=== PATIENT | male | born 1975 | race Caucasian/White ===

== ENCOUNTER 2020-01-12 06:20 | Day surgery (SDC) | payer BC ==
[2020-01-11 14:33] LABS: BASOPHILS # (AUTO) 0.1 X10'3 (0-0.2); BASOPHILS % (AUTO) 0.7 % (0-1); EOSINOPHILS # (AUTO) 0.2 X10'3 (0-0.9); EOSINOPHILS % (AUTO) 2.2 % (0-6); LYMPHOCYTES # (AUTO) 2.6 X10'3 (1.1-4.8); LYMPHOCYTES % (AUTO) 32.5 % (21-51); MEAN CORPUSCULAR HEMOGLOBIN 31.7 PG (27.0-31.0); MEAN CORPUSCULAR HGB CONC 34.5 g/dL (33.0-36.5); MEAN PLATELET VOLUME 7.4 FL (7.4-10.4); MONOCYTES # (AUTO) 0.8 X10'3 (0-0.9); MONOCYTES % (AUTO) 9.5 % (2-12); NEUTROPHILS # (AUTO) 4.4 X10'3 (1.8-7.7); NEUTROPHILS % (AUTO) 55.1 % (42-75); PRE OP HEMATOCRIT 42.1 % (42.0-52.0); PRE OP HEMOGLOBIN 14.5 g/dL (14.0-17.9); PRE OP PLATELET COUNT 324 X10'3 (140-440); RED BLOOD COUNT 4.57 X10'6 (4.70-6.10); RED CELL DISTRIBUTION WIDTH 13.8 % (11.5-14.5)
[2020-01-11 14:47] LABS: CLARITY,URINE CLEAR (Clear); COLOR,URINE YELLOW (Yellow); GLUCOSE, URINE NEGATIVE (Neg); KETONES,URINE NEGATIVE (Neg); LEUKOCYTE ESTERASE ,URINE NEGATIVE (Neg); NITRITES, URINE NEGATIVE (Neg); OCCULT BLOOD,URINE NEGATIVE (Neg); PH,URINE 7.5 (4.8-8.0); PROTEIN,URINE NEGATIVE (Neg); UROBILINOGEN,URINE 0.2 E.U/dL (0.2-1.0)
[2020-01-11 14:49] LABS: UA COLLECTION TYPE CLN CATCH MIDSTREAM
[2020-01-11 14:54] LABS: ALBUMIN 4.2 G/DL (3.4-5.0); ALBUMIN/GLOBULIN RATIO 1.2 (1.1-1.5); ALKALINE PHOSPHATASE 68 IU/L (46-116); BLOOD UREA NITROGEN 13 MG/DL (7-18); BUN/CREATININE RATIO 12.7 (5.4-32.0); CALCIUM 9.8 MG/DL (8.5-10.1); CHLORIDE 104 MMOL/L (99-107); CREATININE 1.02 MG/DL (0.60-1.10); PRE OP ALT 31 U/L (30-65); PRE OP ANION GAP 7 (8-16); PRE OP AST 30 U/L (10-37); PRE OP BILIRUB, TOTAL 0.4 MG/DL (0.0-1.0); PRE OP GLUCOSE 100 MG/DL (70-104); PRE OP POTASSIUM 3.6 MMOL/L (3.4-5.1); PRE OP SODIUM 141 MMOL/L (135-145); TOTAL CARBON DIOXIDE 30.5 MMOL/L (24-32); TOTAL PROTEIN 7.6 G/DL (6.4-8.2); eGFR 79 ML/MIN
[~2020-01-12] VITALS: Ht 175.3 cm; Wt 70.0 kg
[~2020-01-12 06:20] MED LIST: AMOX-117 PO; CHOL500049 PO; cefazolin/dext.iso 2gm/50ml 50 ML IV ONE; famotidine 20mg tablet PO ONE; ringers solution, lacted 1,000 ML IV SCH
[2020-01-12 06:25] VITALS: BP 124/78
[2020-01-12] MEDS ORDERED: LIDOcaine 1% 30ml preserv. free vial ONE (08:05)
[2020-01-12] MEDS ORDERED: BUPIVAcaine/PF 2.5 mg/ml (0.25%) 30ml vial ONE (08:05)
[2020-01-12] MEDS ORDERED: ondansetron/PF 4mg/2ml inj ONE (08:14)
--- NOTE | 2020-01-12 09:05 | NUR ---
PT RECEIVED FROM DR MARSHALL VIA GURNEY AFTER EXCISION OF NECK AND DID NOT RECEIVE ANY SEDATION, PT ONLY RECEIVED A LOCAL INJECTION AT INCISION SITE, PER DR MARSHALL, NUVIA TO SEND PT HOME, VSS, 130/80, HR 71, RR 16, SA02 99% ON ROOM AIR, LEFT NECK W/FOAM TAPE COVERING DRSG, CDI. PT DENIES PAIN, DR PINA IN TO SEE PT AND WRITE D/C ORDERS, PT DRESSED AND WAITED A COUPLE OF HOURS PRIOR TO HIS RIDE ARRIVING. D/C INSTRUCTIONS GIVEN AND GONE OVER W/PT WHO VERBALIZED UNDERSTANDING, PT D/CD TO HOME VIA PRIVATE VEHICLE W/O INCIDENT. Addendum: 01/12/20 at 1550 by Rhina Killian RN Amended: Links added.
== END 2020-01-12 11:12 | disposition home or self-care (01) ==
LOC: PAS 06:20
PROVIDERS: ATTEND Surgery
DX: D17.0 Benign lipomatous neoplasm of skin and subcutaneous tissue of head, face and neck (principal); Z98.890 Other specified postprocedural states; Z79.2 Long term (current) use of antibiotics; Z79.899 Other long term (current) drug therapy
CPT/HCPCS: 21556; 36415; 80053; 81003; 82948; 85025; 93005; J2001; J2405; J3490; A4215; A6449; A7000; J7120

== ENCOUNTER 2020-01-20 13:09 | Emergency (ER) | payer BC ==
[~2020-01-20] VITALS: Ht 175.3 cm; Wt 68.2 kg
[~2020-01-20 13:09] MED LIST changes: -cefazolin/dext.iso 2gm/50ml 50 ML IV ONE; -famotidine 20mg tablet PO ONE; -ringers solution, lacted 1,000 ML IV SCH
[2020-01-20 13:14] VITALS: BP 133/87
== END 2020-01-20 14:10 | disposition home or self-care (01) ==
LOC: ER 13:09
DX: R42 Dizziness and giddiness (principal); R51 Headache; Z79.899 Other long term (current) drug therapy
CPT/HCPCS: 99284

== ENCOUNTER 2020-02-11 07:52 | Emergency (ER) | payer BC ==
[~2020-02-11] VITALS: Ht 175.3 cm; Wt 67.0 kg
--- NOTE | 2020-02-11 08:21 | NUR ---
Liudmila hernández in ED - 02/11/20 at 1013 by SURESH PT SLEEPING, BUT AROUSABLE, DROWSY FELL BACK TO SLEEP. WILL ASSESS AT [address] SAFELY HOME
[2020-02-11 08:51] LABS: BASOPHILS # (AUTO) 0.1 X10'3 (0-0.2); BASOPHILS % (AUTO) 1.1 % (0-1); EOSINOPHILS # (AUTO) 0.1 X10'3 (0-0.9); EOSINOPHILS % (AUTO) 0.9 % (0-6); HEMATOCRIT 44.2 % (42.0-52.0); HEMOGLOBIN 15.4 g/dl (14.0-17.9); LYMPHOCYTES # (AUTO) 2.3 X10'3 (1.1-4.8); LYMPHOCYTES % (AUTO) 26.8 % (21-51); MEAN CORPUSCULAR HEMOGLOBIN 31.7 PG (27.0-31.0); MEAN CORPUSCULAR HGB CONC 34.7 g/dL (33.0-36.5); MEAN CORPUSCULAR VOLUME 91.3 FL (78-98); MEAN PLATELET VOLUME 7.6 FL (7.4-10.4); MONOCYTES # (AUTO) 0.8 X10'3 (0-0.9); MONOCYTES % (AUTO) 9.8 % (2-12); NEUTROPHILS # (AUTO) 5.3 X10'3 (1.8-7.7); NEUTROPHILS % (AUTO) 61.4 % (42-75); PLATELET COUNT 340 X10'3 (140-440); RED BLOOD COUNT 4.85 X10'6 (4.70-6.10); RED CELL DISTRIBUTION WIDTH 13.5 % (11.5-14.5); WHITE BLOOD COUNT 8.6 X10'3 (4.5-11.0)
[2020-02-11 09:07] LABS: ALANINE AMINOTRANSFERASE 32 U/L (12-78); ALBUMIN 4.2 G/DL (3.4-5.0); ALBUMIN/GLOBULIN RATIO 1.1 (1.1-1.5); ALKALINE PHOSPHATASE 62 IU/L (46-116); ANION GAP 9 (8-16); ASPARTATE AMINO TRANSFERASE 17 U/L (10-37); BILIRUBIN,TOTAL 0.9 MG/DL (0.1-1.0); BLOOD UREA NITROGEN 13 MG/DL (7-18); BUN/CREATININE RATIO 11.9 (5.4-32.0); CALCIUM 9.5 MG/DL (8.5-10.1); CHLORIDE 102 MMOL/L (99-107); CREATININE 1.09 MG/DL (0.60-1.10); GLUCOSE 101 MG/DL (70-104); POTASSIUM 3.1 MMOL/L (3.5-5.1); SODIUM 139 MMOL/L (135-145); TOTAL CARBON DIOXIDE 27.6 MMOL/L (24-32); eGFR 73 ML/MIN
[2020-02-11 09:10] LABS: MAGNESIUM 2.1 MG/DL (1.5-2.4); TROPONIN I < 0.04 NG/ML (0.0-0.05)
[2020-02-11 09:50] LABS: H PYLORI ANTIBODY NEGATIVE (Neg)
[2020-02-11] MEDS ORDERED: ondansetron 4mg rapidly disintigrating tab PO ONE (10:00)
[2020-02-11 10:05] VITALS: BP 119/82
[2020-02-11] MEDS ORDERED: ONDA4TAB6 PO (10:06)
[2020-02-11] MEDS ORDERED: FAMO-128 PO (10:06)
--- NOTE | 2020-02-11 10:10 | NUR ---
PT REFUSED ZOFRAN, ZOFRAN TAB 4MG WASTED.
== END 2020-02-11 10:26 | disposition home or self-care (01) ==
LOC: ER 07:52
DX: R11.2 Nausea with vomiting, unspecified (principal); F41.9 Anxiety disorder, unspecified; R53.83 Other fatigue; R42 Dizziness and giddiness; Z98.890 Other specified postprocedural states; Z79.2 Long term (current) use of antibiotics; Z79.899 Other long term (current) drug therapy
CPT/HCPCS: 36415; 80053; 83735; 84484; 85025; 86677; 93005; 99284